=== PATIENT | male | born 1985 | race Caucasian/White ===

== ENCOUNTER 2022-04-13 07:17 | Emergency (ER) | payer OTHER, SELFPAY ==
[2022-04-13 07:19] VITALS: BP 138/81; PULSE 142; RESP 18; TEMP 35.7; O2SAT 97; BMI 33.5
--- NOTE | 2022-04-13 07:19 | NURSING ---
NO OLD EKGS
--- NOTE | 2022-04-13 07:25 | EKG12_ITS ---
Test Reason : cp Blood Pressure : / mmHG Vent. Rate : 140 BPM Atrial Rate : 140 BPM P-R Int : 134 ms QRS Dur : 082 ms QT Int : 266 ms P-R-T Axes : 052 089 000 degrees QTc Int : 406 ms Sinus tachycardia Otherwise normal ECG Confirmed by ALYSSA REYES, ALENA ([id number]), acquisitions editor KHANH BARBOZA ([id number]) on 04/16/2022 7:54:57 AM Referred By: Kelsey Confirmed By:ALENA SHAH MD
[2022-04-13 07:27] VITALS: O2SAT 95
[2022-04-13 07:33] LABS: Absolute Lymphocyte Count 2.62 X10^3/uL (0.83-4.51); Absolute Neutrophil Count 7.2 X10^3/uL (2.0-7.7); Basophil# 0.06 X10^3/uL; Basophil% 0.6 % (0-1); Eosinophil# 0.01 X10^3/uL; Eosinophils% 0.1 % (0-5); Hematocrit 42.5 % (40-54); Hemoglobin 14.5 g/dL (13.0-16.5); Lymphocyte # 2.62 X10^3/ul (0.83-4.51); Lymphocyte % 24.1 % (19-41); Mean Corp Hgb Conc 34.1 g/dL (32-36); Mean Platelet Vol. 9.3 fl (6.2-12.0); Monocyte# 0.93 X10^3/uL; Monocyte% 8.5 % (0-10); NRBC Flagged by Analyzer 0 % (0-5); Neutrophil # 7.22 X10^3/uL (2.7-7.7); Neutrophil % 66.2 % (47-70); Platelet Count 343 K/mm3 (150-450); RBC Distribution Width CV 12.3 % (11.6-14.6); RBC Distribution Width SD 39.8 fl (35.1-43.9); Red Blood Count 4.83 M/mm3 (4.6-6.2); White Blood Count 10.9 K/mm3 (4.4-11.0)
[2022-04-13] MEDS: 0.9% Normal Saline 1,000 ML 1000 ML IV (07:35)
[2022-04-13] MEDS: Aspirin 81 MG TAB.CHEW 324 MG PO (07:35)
[2022-04-13] MEDS: LORazepam 2 MG/ML Syringe 0.5 MG IV (07:35)
--- NOTE | 2022-04-13 07:38 | RAD_ITS ---
EXAM: XR CHEST, 1 VIEW CLINICAL INDICATION: chest pain TECHNIQUE: Frontal view of the chest. This report was created using Open CS report generation technology. COMPARISON: None. FINDINGS: LUNGS AND PLEURAL SPACES: Unremarkable. No consolidation or edema. No pneumothorax. No effusion. HEART: Unremarkable. Normal heart size. MEDIASTINUM: Central airways and mediastinal contour are unremarkable. BONES/JOINTS: Unremarkable. SOFT TISSUES: Unremarkable. RAD/Chest 1 View (Portable) IMPRESSION: No acute cardiopulmonary abnormality. Electronically Signed: Kyaw Thomas MD at 7:53 EDT ,
--- NOTE | 2022-04-13 07:45 | EX.ED.DYSGE1 ---
HPI History of Present Illness Chief Complaint: Palpitations Informant: patient Narrative Narrative: Patient is a 36-year-old male with history of prediabetes (on metformin), hypertension, hyperlipidemia as well as polysubstance abuse presenting with shortness of breath and racing heart. Patient states he did a large amount of crack cocaine as well as heroin last night. He snorted these. He then started having racing heart and feeling short of breath. He states he is had prior incidence with the symptoms when he is abused crack cocaine. He does not know if he is interested in detox at this time. He denies any associated nausea, vomiting, abdominal pain, urinary symptoms or fever. He states he does feel hot and is sweating. No other complaints at this time. [facility] Medical History (Updated 04/13/22 @ 11:[address] Ira Cole, DO) HTN (hypertension) Prediabetes Home Medications aripiprazole 10 mg tablet 10 mg PO DAILY 04/13/22 [History Last Taken Unknown] atorvastatin 40 mg tablet 40 mg PO QHS 04/13/22 [History Last Taken Unknown] fenofibrate nanocrystallized 48 mg tablet 48 mg PO DAILY 04/13/22 [History Last Taken Unknown] lisinopril 10 mg tablet 10 mg PO DAILY 04/13/22 [History Last Taken Unknown] melatonin 10 mg tablet 20 mg PO DAILY 04/13/22 [History Last Taken Unknown] metformin 1,000 mg tablet 1,000 mg PO DAILY 04/13/22 [History Last Taken Unknown] metoprolol succinate 100 mg capsule sprinkle, ext. release 24 hr 100 mg PO DAILY 04/13/22 [History Last Taken Unknown] multivitamin with iron-mineral 1 tab PO DAILY 04/13/22 [History Last Taken Unknown] pantoprazole 40 mg tablet,delayed release 40 mg PO DAILY 04/13/22 [History Last Taken Unknown] trazodone 100 mg tablet 100 mg PO QHS 04/13/22 [History Last Taken Unknown] venlafaxine 75 mg capsule,extended release 24 hr (Effexor XR) 225 mg PO DAILY 04/13/22 [History Last Taken Unknown] vortioxetine 5 mg tablet 5 mg PO DAILY 04/13/22 [History Last Taken Unknown] Allergy/AdvReac Type Severity Reaction Status Date / Time No Known Allergies Allergy Verified 04/13/22 07:18 Social History Smoking Status: Current every day smoker tobacco type: cigarettes ROS ROS ED Constitutional Constitutional ED: Reports sweats; Denies chills or fever(s) Eyes Eyes: Denies blurry vision or change in vision ENT ENT ED: Denies rhinorrhea or sore throat Cardiovascular Cardiovascular: Reports palpitations and racing heartbeat; Denies chest pain Respiratory/Chest Respiratory/Chest: Reports dyspnea; Denies cough Gastrointestinal Gastrointestinal: Denies abdominal pain, constipation, diarrhea, nausea or vomiting Genitourinary Genitourinary ED: Denies dysuria or hematuria Musculoskeletal Musculoskeletal: Denies arthralgias, back pain or myalgias Integumentary Denies rash Neurologic Neurologic: Denies headache(s), paresthesias or weakness Psychiatric Psychiatric: Reports anxiety; Denies suicidal ideation EXAM Physical Exam Const Vital Signs: 04/13/22 07:19 04/13/22 07:21 04/13/22 07:27 Temperature 96.3 F L Temperature Source Temporal Pulse Rate 142 H Respiratory Rate 18 Respiratory Effort Short of Breath Respiratory Pattern Normal Blood Pressure 138/81 H Blood Pressure Mean 100 Pulse Ox 97 95 Oxygen Delivery Method Room Air Room Air 04/13/22 08:25 04/13/22 09:47 04/13/22 10:59 Temperature Temperature Source Pulse Rate 118 H 115 H Respiratory Rate 19 H 18 104 H Respiratory Effort Respiratory Pattern Blood Pressure 136/27 H 153/85 H Blood Pressure Mean 63 107 Pulse Ox 98 100 100 Oxygen Delivery Method Room Air Room Air Room Air Positive well nourished and well developed General Appearance ED: well developed and NAD; Negative for diaphoretic HEENT Reports dry mucous membranes Negative for trauma Mouth ED: Yes dry mucous membranes Mouth: dry mucous membranes Eyes PERRL and EOMs intact bilaterally Neck no lymphadenopathy, supple and no JVD Chest Wall inspection of chest normal and palpation of chest normal Resp normal respiratory effort and clear to auscultation bilaterally Effort and Inspection: Negative for retractions Auscultation: Negative for rhonchi or wheezes Cardio regular rhythm and no murmurs Rate: tachycardic GI normal to inspection, nondistended, normoactive bowel sounds and non-tender Back/Spine no CVA tenderness Extremity normal to inspection General Extremety ED: Negative for edema or tenderness General Extremity: Negative for edema Neuro oriented x3, CN's II-XII intact bilaterally and no sensory deficits noted Motor Exam: strength 5/5 throughout Psych mental status grossly normal Mood & Affect: anxious and tearful Skin no rashes or lesions noted and no wounds MDM MDM MDM Narrative Medical decision making narrative: Patient's evaluated for tachycardia, shortness of breath and palpitations in the setting of crack cocaine abuse. Patient is given IV fluids, aspirin and Ativan. No ST segment changes on EKG. Will obtain cardiac work-up. Patient is given IV fluids, aspirin and Ativan. Heart rate and symptoms improved. He continues to be tachycardic around 115-120 beats per minutes was given a second liter of fluids. D-dimer is negative. CBC is normal. BMP does show a mildly elevated creatinine of 1.34. Patient is unaware of any history of CORDELIA. High sensitivity troponin is 5 and 7. As he does not have ischemic EKG changes I do not think he requires further monitoring for cocaine chest pain. TSH is mildly elevated 3.89 however I do not think this is the cause of his tachycardia, palpitations and shortness of breath. CK is also mildly elevated but not enough to cause rhabdomyolysis. Patient is evaluated by case management. He follows with telepsychiatry and is scheduled to start IOP in [place] for his drug abuse. Patient is now eager to go home. Given that we do not do inpatient detox for crack cocaine we cannot offer admission for detox at this time. Patient verbalizes agreement understand this plan. Discharged home in stable condition. Is given return precautions and counseled to stop using drugs. Lab Data Attestation: I reviewed the patient's lab results. Labs: Laboratory Results - last 24 hr 04/13/22 04/13/22 04/13/22 07:28 07:28 07:28 WBC 10.9 RBC 4.83 Hgb 14.5 Hct 42.5 MCV 88.0 MCH 30.0 MCHC 34.1 RDW Std Deviation 39.8 RDW Coeff of Nelda 12.3 Plt Count 343 MPV 9.3 Immature Gran % (Auto) 0.500 Neut % (Auto) 66.2 Lymph % (Auto) 24.1 [place] % (Auto) 8.5 Eos % (Auto) 0.1 Baso % (Auto) 0.6 Absolute Neuts (auto) 7.2 Absolute Lymphs (auto) 2.62 Nucleated RBC % 0 D-Dimer Quant (PE/DVT) < 0.27 L Sodium 137 Potassium 3.7 Chloride 102 Carbon Dioxide 27.0 Anion Gap 8 BUN 10 Creatinine 1.34 H Estim Creat Clear Calc 74.44 Est GFR (MDRD) Af Amer 78 Est GFR (MDRD) Non-Af 64 BUN/Creatinine Ratio 7.5 L Glucose 137 H Calcium 8.8 Magnesium 1.9 Total Creatine Kinase Troponin I High Sens 5 TSH 3.89 H Urine Opiates Screen Urine Methadone Screen Ur Barbiturates Screen Ur Phencyclidine Scrn Ur Amphetamines Screen MDMA (Ecstasy) Screen U Benzodiazepines Scrn Urine Cocaine Screen U Cannabinoids Screen Ur Drug Screen Comment Ethyl Alcohol 04/13/22 04/13/22 04/13/22 07:28 08:16 08:23 WBC RBC Hgb Hct MCV MCH MCHC RDW Std Deviation RDW Coeff of Nelda Plt Count MPV Immature Gran % (Auto) Neut % (Auto) Lymph % (Auto) [place] % (Auto) Eos % (Auto) Baso % (Auto) Absolute Neuts (auto) Absolute Lymphs (auto) Nucleated RBC % D-Dimer Quant (PE/DVT) Sodium Potassium Chloride Carbon Dioxide Anion Gap BUN Creatinine Estim Creat Clear Calc Est GFR (MDRD) Af Amer Est GFR (MDRD) Non-Af BUN/Creatinine Ratio Glucose Calcium Magnesium Total Creatine Kinase 340 H Troponin I High Sens TSH Urine Opiates Screen NEGATIVE Urine Methadone Screen NEGATIVE Ur Barbiturates Screen NEGATIVE Ur Phencyclidine Scrn NEGATIVE Ur Amphetamines Screen NEGATIVE MDMA (Ecstasy) Screen NEGATIVE U Benzodiazepines Scrn NEGATIVE Urine Cocaine Screen POSITIVE H U Cannabinoids Screen NEGATIVE Ur Drug Screen Comment Ethyl Alcohol < 3.0 04/13/22 09:35 WBC RBC Hgb Hct MCV MCH MCHC RDW Std Deviation RDW Coeff of Nelda Plt Count MPV Immature Gran % (Auto) Neut % (Auto) Lymph % (Auto) [place] % (Auto) Eos % (Auto) Baso % (Auto) Absolute Neuts (auto) Absolute Lymphs (auto) Nucleated RBC % D-Dimer Quant (PE/DVT) Sodium Potassium Chloride Carbon Dioxide Anion Gap BUN Creatinine Estim Creat Clear Calc Est GFR (MDRD) Af Amer Est GFR (MDRD) Non-Af BUN/Creatinine Ratio Glucose Calcium Magnesium Total Creatine Kinase Troponin I High Sens 7 TSH Urine Opiates Screen Urine Methadone Screen Ur Barbiturates Screen Ur Phencyclidine Scrn Ur Amphetamines Screen MDMA (Ecstasy) Screen U Benzodiazepines Scrn Urine Cocaine Screen U Cannabinoids Screen Ur Drug Screen Comment Ethyl Alcohol Radiography Chest X-Ray - ED: 1 View, Read by ED Physician, Read by Radiologist and No Acute Disease Diagnostic Testing: Clinical Impression(s) from Imaging Studies Chest X-Ray 04/13/22 07:38 IMPRESSION: No acute cardiopulmonary abnormality. Electronically Signed: Kyaw Thomas MD at 7:53 EDT , Rhythm Strip Rhythm Strip: Sinus Tach Rate: 140 Ectopy: None EKG Initial EKG: Attestation: I personally reviewed and interpreted this EKG as follows: Interpretation: Sinus Tachycardia Comments: Sinus tachycardia at a rate of 140 Normal axis Normal intervals Normal ST segments Discharge Plan Triage Chief Complaint: Palpitations Other Complaint: Overdose ED Provider: Ira Cole Dx/Rx/DC Orders Clinical Impression: Cocaine abuse, Tachycardia, Acute dyspnea, Elevated serum creatinine Instructions: ED Cocaine And Crack Abuse, ED Palpitations Prescriptions: No Action atorvastatin 40 mg Tablet 40 mg PO QHS venlafaxine [Effexor XR] 75 mg Capsule,Extended Release 24hr 225 mg PO DAILY trazodone 100 mg Tablet 100 mg PO QHS pantoprazole 40 mg Tablet,Delayed Release (Dr/Ec) 40 mg PO DAILY metformin 1,000 mg Tablet 1,000 mg PO DAILY lisinopril 10 mg Tablet 10 mg PO DAILY Multi M Vitamin Tablet 1 tab PO DAILY aripiprazole 10 mg Tablet 10 mg PO DAILY fenofibrate nanocrystallized 48 mg Tablet 48 mg PO DAILY melatonin 10 mg Tablet 20 mg PO DAILY vortioxetine 5 mg Tablet 5 mg PO DAILY metoprolol succinate 100 mg Capsule,Sprinkle,Er 24hr 100 mg PO DAILY Primary Care Provider: Care Physician,No Primary Referrals: Trudy Mason [NON-STAFF] - Care Physician,No Primary [Primary Care Provider] - Activity Restrictions/Additional Instructions: Please follow-up with outpatient detox/rehab as scheduled next week. Disposition Disposition: Home, Self Care
[2022-04-13 07:46] LABS: D-Dimer Quantitative (DVT/PE) < 0.27 FEU/ug/m (0.27-0.49)
[2022-04-13 07:58] LABS: Anion Gap 8 (5-15); BUN 10 mg/dL (7-18); BUN/Creat Ratio 7.5 RATIO (10-20); Calcium,Total 8.8 mg/dL (8.5-10.1); Chloride 102 mmol/L (98-107); Creatinine, Serum 1.34 mg/dL (0.70-1.30); EST Glomerular Filtration Rate 64 mL/min (>60); Est Glom Filt Rate - Afr Amer 78 mL/min (>60); Estimated Creatinine Clearance 74.44 ml/min; Glucose 137 mg/dL (74-106); Magnesium 1.9 mg/dL (1.6-2.6); Potassium 3.7 mmol/L (3.5-5.1); Sodium Level 137 mmol/L (136-145); Thyroid Stim Hormone (TSH) 3.89 uIU/mL (0.358-3.74); Troponin-I HS (w/2H Reflex) 5 pg/mL (3.0-78.0)
[2022-04-13 08:07] LABS: CPK Total, Creatine Kinase 340 U/L (39-308)
[2022-04-13 08:25] VITALS: BP 136/27; PULSE 118; RESP 19; O2SAT 98
[2022-04-13 08:55] LABS: Alcohol, Blood (Medical)-Serum < 3.0 mg/dL
[2022-04-13 09:00] LABS: Amphetamine Urine VISTA NEGATIVE (<1000 ng/mL); Barbiturate Urine VISTA NEGATIVE (< 200 ng/mL); Benzodiazepine Urine VISTA NEGATIVE (< 200 ng/mL); Cocaine Urine VISTA POSITIVE (< 300 ng/mL); Ecstacy Urine VISTA NEGATIVE (< 500 ng/mL); Methadone Urine VISTA NEGATIVE (< 300 ng/mL); PCP Urine VISTA NEGATIVE (< 25 ng/mL); THC Urine VISTA NEGATIVE (< 50 ng/mL); Vista UDS pH Range 7
[2022-04-13 09:30] LABS: Reflex Troponin-HS? (from REC) Y
[2022-04-13] MEDS: 0.9% Normal Saline 1,000 ML 999 ML IV (09:42)
[2022-04-13] MEDS: LORazepam 1 MG Tablet PO (09:46)
[2022-04-13 09:47] VITALS: BP 153/85; PULSE 115; RESP 18; O2SAT 100
[2022-04-13 10:03] LABS: Troponin-I HS 7 pg/mL (3.0-78.0)
--- NOTE | 2022-04-13 10:38 | CM.ED ---
Addendum entered by Shelby Del Rio 04/13/22 10:56: Pt also stated history of Depression and states that he currently takes medications prescribed through Psychiatrist Julisa Gallo. Pt states that his Psychiatrist is online. Original Note: Social Work Note Reason for Referral: Substance Abuse SW spoke with MD Cole, request pt get resources for substance abuse. SW in to speak with pt. Pt states that he is scheduled to begin IOP at [facility] in [place] next week. Pt states that he has transportation to get to his appointments. Pt states that he cannot go to [facility] as his brother works there. SW asked pt if he wanted additional resources for [facility] for substance use and pt agreeable to taking resources. SW provided pt with resources for [facility]. Pt denied any current suicidal/homicidal thoughts. Shelby Del Rio RN PALLIATIVE, PROGRAM REP
[2022-04-13 10:59] VITALS: RESP 104; O2SAT 100
== END 2022-04-13 11:13 | disposition home or self-care (01) ==
PROVIDERS: Emergency Provider Emergency Medicine; Visit Provider Emergency Medicine
DX: R00.2 Palpitations (principal); F14.10 Cocaine abuse, uncomplicated; R79.89 Other specified abnormal findings of blood chemistry; F17.210 Nicotine dependence, cigarettes, uncomplicated; I10 Essential (primary) hypertension; R06.00 Dyspnea, unspecified; R73.03 Prediabetes; E78.5 Hyperlipidemia, unspecified; Z79.899 Other long term (current) drug therapy
CPT/HCPCS: 36415; 71045; 80048; 80307; 82077; 82550; 83735; 84443; 84484; 85025; 85379; 93005; 96361; 96374; 99285; J7030; A4216

== ENCOUNTER → 2022-07-23 | Outpatient (CLI) | payer MEDICAID, SELFPAY ==
[2022-07-23 09:51] LABS: Absolute Lymphocyte Count 2.34 X10^3/uL (0.83-4.51); Basophil# 0.02 X10^3/uL; Basophil% 0.3 % (0-1); Eosinophils% 1.7 % (0-5); Hematocrit 38.5 % (40-54); Hemoglobin 13.7 g/dL (13.0-16.5); Lymphocyte # 2.34 X10^3/ul (0.83-4.51); Lymphocyte % 38.9 % (19-41); Mean Corp Hgb Conc 35.6 g/dL (32-36); Mean Corpuscular Hgb 31.6 pg (27.0-32.0); Mean Corpuscular Volume 88.9 fL (80-94); Mean Platelet Vol. 9.8 fl (6.2-12.0); Monocyte# 0.54 X10^3/uL; NRBC Flagged by Analyzer 0 % (0-5); Neutrophil # 2.99 X10^3/uL (2.7-7.7); Neutrophil % 49.6 % (47-70); Platelet Count 278 K/mm3 (150-450); RBC Distribution Width SD 42.2 fl (35.1-43.9); Red Blood Count 4.33 M/mm3 (4.6-6.2)
[2022-07-23 10:24] LABS: ALB/GLOB Ratio 1.1 RATIO (0.9-2.4); AST(SGOT) 23 U/L (15-37); Alanine Aminotransfer ALT/SGPT 26 U/L (16-61); Albumin, Serum 3.4 g/dL (3.2-5.0); Alkaline Phosphatase 44 U/L (45-117); Anion Gap 5 (5-15); BUN 11 mg/dL (7-18); BUN/Creat Ratio 9.2 RATIO (10-20); Calcium,Total 8.5 mg/dL (8.5-10.1); Chloride 108 mmol/L (98-107); EST Glomerular Filtration Rate 73 mL/min (>60); Est Glom Filt Rate - Afr Amer 88 mL/min (>60); Globulin 3.1 g/dL (2.2-4.2); Glucose 160 mg/dL (74-106); Potassium 3.9 mmol/L (3.5-5.1); Protein, Total 6.5 g/dL (6.4-8.2); Sodium Level 139 mmol/L (136-145); T4 Free Direct 0.87 ng/dL (0.76-1.46); Thyroid Stim Hormone (TSH) 2.48 uIU/mL (0.358-3.74)
[2022-07-23 10:45] LABS: HIV - WCH Non-Reactive (Nonreactive); Hepatitis B Surface Antibody Reactive; Hepatitis B Surface Antigen Non-Reactive (Nonreactive); Hepatitis C Antibody Non-Reactive (Nonreactive)
[2022-07-24 09:44] LABS: Hepatitis A AB, Total Positive (Negative)
== END | disposition home or self-care (01) ==
LOC: MTLAB 08:48
PROVIDERS: PCP Family Medicine; Referring Provider Registered Nurse; Visit Provider Registered Nurse
DX: F11.20 Opioid dependence, uncomplicated (principal); F10.20 Alcohol dependence, uncomplicated
CPT/HCPCS: 36415; 80053; 84439; 84443; 85025; 86703; 86706; 86708; 86803; 87340

== ENCOUNTER 2022-09-16 10:43 | Outpatient (CLI) | payer MEDICAID, SELFPAY ==
[2022-09-16 12:39] LABS: Cholesterol 148 mg/dL (200)
[2022-09-16 12:51] LABS: Hemoglobin A1c 6.4 % (3.8-5.6)
== END 2022-09-16 23:59 | disposition home or self-care (01) ==
PROVIDERS: PCP Family Medicine; Referring Provider Student in an Organized Health Care Education/Training Program; Visit Provider Student in an Organized Health Care Education/Training Program
DX: F19.94 Other psychoactive substance use, unspecified with psychoactive substance-induced mood disorder (principal); Z79.899 Other long term (current) drug therapy
CPT/HCPCS: 36415; 82465; 83036

== ENCOUNTER → 2023-10-26 | Outpatient (CLI) | payer MEDICAID, SELFPAY ==
--- OUTSIDE RECORDS SUMMARY | 2023-10-26 11:15 | XMS RPT_ITS | CCD ---
Author Name Unknown Address [address] [place] [address] Organization [facility] Care Team Providers Care Dobie Man Name Role Phone RUBEN VEGA Primary Care Unavailabl e Problems Problem Classification Problem Date Documented Da te Episodic/Chronic Substance-related disorders (2 sources) Cocaine dependence with withdrawal; Translations: [Cocaine dependence with withdrawal] Onset: 09-14-2023 Chronic Encounters Encounter Date Encounter Type Care Provider Facility Start: 09-14-2023 End: 09-18-2023 ambulatory RUBEN LEENGER [facility] Payers Date Payer Category Payer Medicaid [id number] 1985 Unknown [id number] Summary Purpose Family History No Family History Records Found Advance Directives No Advanced Directives Records Found Additional Source Comments (unrecognized sect ion and content) No Status Records Found INFORMATION SOURCE (unrecogn ized section and content) FOR RECORDS PERTAINING TO PATIENTS WHO ARE OR HAVE BEEN ENROLLED IN A CHEMICAL DEPENDENCY/SUBSTANCEABUSE PROGRAM, SOME INFORMATION MAY BE OMITTED. This clinical summary was aggregated from multiple sources. Caution should be exercised in using it in the provision of clinical care. This summary normalizes information from multiple sources, and as a consequence, information in this document may materially change the coding, format and clinical context of patient data. In addition, data may be omitted in some cases. CLINICAL DECISIONS SHOULD BE BASED ON THE PRIMARY CLINICAL RECORDS. [employer] provides no warranty or guarantee of the accuracy or completeness of information in this document.
[2023-10-26 12:54] LABS: ALB/GLOB Ratio 1.2 RATIO (0.9-2.4); AST(SGOT) 22 U/L (15-37); Alanine Aminotransfer ALT/SGPT 27 U/L (16-61); Alkaline Phosphatase 44 U/L (45-117); Anion Gap 3 (5-15); BUN 9 mg/dL (7-18); BUN/Creat Ratio 8.8 RATIO (10-20); Calcium,Total 9.2 mg/dL (8.5-10.1); Chloride 111 mmol/L (98-107); Cholesterol 135 mg/dL (200); Creatinine, Serum 1.02 mg/dL (0.70-1.30); EST Glomerular Filtration Rate 87 mL/min (>60); Est Glom Filt Rate - Afr Amer 106 mL/min (>60); Globulin 3.4 g/dL (2.2-4.2); Glucose 96 mg/dL (74-106); High Density Lipoprotein 42 mg/dL; Potassium 4.1 mmol/L (3.5-5.1); Protein, Total 7.4 g/dL (6.4-8.2); Sodium Level 140 mmol/L (136-145); Triglycerides 131 mg/dL; Very Low Density Lipoprotein 26 mg/dL (5-40)
[2023-10-26 13:08] LABS: Microalbumin,Random Urine < 5.0 mg/L (NO RANGE EST.)
== END | disposition home or self-care (01) ==
LOC: MFPLAB 10:08
PROVIDERS: PCP Family Medicine; Visit Provider Family Medicine
DX: E78.5 Hyperlipidemia, unspecified (principal); E11.9 Type 2 diabetes mellitus without complications
CPT/HCPCS: 36415; 80053; 80061; 82043; 82570

== ENCOUNTER → 2024-05-08 | Outpatient (CLI) | payer MEDICAID, SELFPAY ==
[2024-05-08 17:52] LABS: Hemoglobin A1c 7.1 % (3.8-5.6)
== END | disposition home or self-care (01) ==
LOC: MFPLAB 16:02
PROVIDERS: PCP Family Medicine; Visit Provider Family Medicine
DX: E11.9 Type 2 diabetes mellitus without complications (principal); F32.A Depression, unspecified
CPT/HCPCS: 36415; 83036; 84443

== ENCOUNTER 2024-11-20 08:43 | Emergency (ER) | payer MEDICAID, SELFPAY ==
[2024-11-20 08:44] VITALS: BP 117/74; PULSE 92; RESP 14; TEMP 36.4; O2SAT 96; BMI 28.5
--- NOTE | 2024-11-20 09:09 | EDS_ITS ---
HPI History of Present Illness Chief Complaint: Wound Detail of Chief Complaint: Wound to right forearm and right foot Informant: patient Narrative Narrative: Patient presents to the emergency department concerned about infection due to wound on his right forearm and right foot. Patient states that he injected into his right foot IV meth 2 weeks ago. Started having some discomfort 2 weeks ago but more so over the last week. He has noticed some swelling and some faint erythema to the foot. He denies fever although at times he is felt hot. Patient also has a wound on the distal right forearm that he thinks might be infected as well. Patient also does use crack. He occasionally uses heroin. Patient is prediabetic and has history of hypertension and high cholesterol. [facility] Medical History Skin abnormality Trauma and stressor-related disorder Cellulitis of right middle finger Cellulitis of left index finger Long-term use of high-risk medication GERD (gastroesophageal reflux disease) IBS (irritable bowel syndrome) High triglycerides High cholesterol Gastrointestinal problem Alcohol use disorder Substance induced mood disorder Stimulant use disorder Prediabetes HTN (hypertension) Home Medications ?Medication ?Instructions ?Recorded ?Last Taken ?Type atorvastatin 40 mg tablet 40 mg PO QHS 04/13/22 Unknow n History fenofibrate nanocrystallized 48 mg 48 mg PO DAILY 03/26 06/17 Unknown History tablet lisinopril 10 mg tablet 10 mg PO DAILY 04/13/22 Unkn own History melatonin 10 mg tablet 20 mg PO DAILY 04/13/22 Unkn own History metformin 1,000 mg tablet 1,000 mg PO DAILY 04/13/22 U nknown History famotidine 20 mg tablet 20 mg PO BID 08/17/22 Unknow n History metoprolol succinate 50 mg 50 mg PO QDAY 06/26/24 Unkn own History tablet,extended release 24 hr venlafaxine 75 mg capsule,extended 225 mg (3 x 75 mg) PO DAILY #90 09/04/24 Unknown Rx release 24 hr caps aripiprazole 10 mg tablet 10 mg PO DAILY #90 tabs 11/20 Unknown Rx clonidine HCl 0.1 mg tablet 0.1 mg PO QHS #90 tabs 11/20 Unknown Rx clindamycin HCl 300 mg capsule 300 mg PO Q6H #40 CAPSU LES 11/20/24 Unknown Rx (Cleocin HCl) Allergy/AdvReac Type Severity Reaction Status Date / Time No Known Allergies Allergy Verified 11/20/24 08:44 Family History Other Alcoholism Anxiety Arthritis Breast cancer Cancer Diabetes Heart disease High cholesterol Hypertension Kidney disease Myocardial infarction Osteoporosis Respiratory disease Surgical History No history of previous surgery Social History (Updated 06/26/24 @ 08:30 by Dana Molina) Smoking Status: Current every day smoker tobacco type: cigarettes Smokeless tobacco user: snus alcohol intake: never details: Unknown substance use type: does not use ROS ROS ED Review of Systems ROS Unobtainable: other Constitutional Constitutional ED: Reports lethargy; Denies chills, fever(s), sweats or weight loss Eyes Eyes: Denies blurry vision, change in vision or diplopia ENT ENT ED: Denies rhinorrhea or sore throat Cardiovascular Cardiovascular: Denies chest pain, orthopnea or racing heartbeat Respiratory/Chest Respiratory/Chest: Denies cough, dyspnea, dyspnea on exertion, orthopnea or sputum Gastrointestinal Gastrointestinal: Denies abdominal pain, diarrhea, nausea or vomiting Genitourinary Genitourinary ED: Denies dysuria, hematuria or urinary frequency Musculoskeletal Musculoskeletal: Reports other Details: Right forearm wound, right foot swelling and erythema ; Denies arthralgias, back pain, myalgias or neck pain Integumentary Denies abscess, Abrasions or rash Neurologic Neurologic: Denies headache(s) or weakness Psychiatric Psychiatric: Denies anxiety, depression or suicidal thoughts Endocrine Endocrinology: Denies polydipsia, polyphagia or polyuria Hematologic/Lymphatic Hematologic/Lymphatic: Denies easy bleeding, easy bruising or lymphadenopathy Allergic/Immunologic Allergic/Immunologic ED: Denies mouth swelling, tongue swelling or urticaria EXAM Physical Exam Const Vital Signs: 11/20/24 08:44 11/20/24 10:44 Temperature 97.6 F L Temperature Source Oral Pulse Rate 92 92 Respiratory Rate 14 14 Blood Pressure 117/74 Blood Pressure Mean 88 Pulse Ox 96 99 Oxygen Delivery Method Room Air Positive well nourished and well developed General Appearance ED: well developed and NAD HEENT Reports TM's clear and moist mucous membranes normocephalic and atraumatic; Negative for trauma or tenderness Tympanic Membrane ED: Yes TM's clear Eyes PERRL and EOMs intact bilaterally General Eye ED: Negative for pale conjunctiva or scleral icterus Neck no lymphadenopathy, supple and no JVD General: Negative for tenderness Chest Wall inspection of chest normal and palpation of chest normal Chest: Negative for tenderness Resp normal respiratory effort and clear to auscultation bilaterally Effort and Inspection: Negative for respiratory distress or pain with movement Auscultation: Negative for rhonchi, wheezes or diminished lung sounds Cardio regular rate, regular rhythm, S1 normal heart sound, S2 normal heart sound and no murmurs Peripheral Pulses: pulses 2+ throughout GI normal to inspection, nondistended, normoactive bowel sounds, soft to palpation, non-tender, non-distended and no masses Back/Spine no CVA tenderness and no thoracic nor lumbar tenderness Extremity normal to inspection Extremity Narrative: Right forearm-over the distal radial aspect of the forearm there is a small excoriated lesion measuring approximately 1.5 cm in diameter. There is no fluctuance. No significant cellulitic changes. Central portion slightly excoriated. There is no lymphangitic streaking. Neurovascular intact distally. Right foot-there are some mild diffuse soft tissue swelling over the dorsum of the foot especially over the lateral aspect. Just some faint erythema to the dorsum of the foot. No discrete soft tissue swellings or fluctuance noted. No obvious breaks in the skin noted on exam. No gas palpated within the tissues. Neurovascular intact General Extremety ED: Negative for edema General Extremity: Negative for edema Neuro oriented x3, CN's II-XII intact bilaterally, no sensory deficits noted and gait normal Sensorium / Orientation: awake, alert, oriented to person, oriented to place and oriented to time Motor Exam: strength 5/5 throughout and strength abnormal Psych mental status grossly normal Skin no rashes or lesions noted and no wounds MDM MDM MDM Narrative Medical decision making narrative: Patient with an old excoriated wound to the right forearm without evidence of abscess or cellulitic changes. Patient also has some erythema and some mild soft tissue swelling of the dorsum of the right foot without trauma. Suspect early cellulitis. I did obtain an x-ray of the foot and the forearm and there was no foreign bodies noted and no gas within the tissues. I did start patient on clindamycin p.o. Clinically he looks well. Advised that he follow-up with his primary care physician for wound check within next 3 days. Advised to return if fever, chills, increased pain or redness, or condition should worsen anyway Radiography Diagnostic Testing: Clinical Impression(s) from Imaging Studies Foot X-Ray 11/20/24 09:30 IMPRESSION: NEGATIVE exam of the right foot. Reading Location: [facility] Forearm X-Ray 11/20/24 09:30 IMPRESSION: Unremarkable examination of the right forearm. Reading Location: [facility] 2 view x-rays of the right forearm obtained interpreted by myself as no evidence of gas within the tissues or foreign bodies within the tissues and no abnormality noted. Radiology in agreement. Three-view x-rays of the right foot obtained interpreted by myself as questionable abnormality in the cortex of the base of the middle phalanx and was unclear if this was a nutrient channel versus nondisplaced fracture. Radiology felt the x-ray was normal. I did discuss case with the radiologist Dr. Rosen who felt this was a nutrient channel and not a fracture. Discharge Plan Triage Chief Complaint: Wound ED Provider: Bj Nunes Dx/Rx/DC Orders Clinical Impression: Cellulitis of foot, right Instructions: Cellulitis Dc Prescriptions: New clindamycin HCl [Cleocin HCl] 300 mg capsule 300 mg PO Q6H Qty: 40 0RF No Action famotidine 20 mg tablet 20 mg PO BID metoprolol succinate 50 mg tablet extended release 24 hr 50 mg PO QDAY aripiprazole 10 mg tablet 10 mg PO DAILY Qty: 90 1RF clonidine HCl 0.1 mg tablet 0.1 mg PO QHS Qty: 90 1RF atorvastatin 40 mg Tablet 40 mg PO QHS metformin 1,000 mg Tablet 1,000 mg PO DAILY lisinopril 10 mg Tablet 10 mg PO DAILY fenofibrate nanocrystallized 48 mg Tablet 48 mg PO DAILY melatonin 10 mg Tablet 20 mg PO DAILY venlafaxine 75 mg capsule,extended release 24hr 225 mg PO DAILY Qty: 90 2RF Primary Care Provider: Toñito Leon Referrals: Toñito Leon MD [Primary Care Provider] - 2 Days for wound check Print Language: Cambodian Disposition Disposition: Home, Self Care
[2024-11-20] MEDS: Clindamycin HCl 150 MG Capsule 300 MG PO (09:20)
--- NOTE | 2024-11-20 09:30 | RAD_ITS ---
PROCEDURE: FOREARM 2 VIEWS REASON FOR EXAM: Soft tissue wound. History of IV drug abuse. TECHNIQUE: 2 view(s) of right forearm were obtained. COMPARISON: None. FINDINGS: RIGHT FOREARM: No fracture. No suspicious bone lesion. Normal alignment at the wrist and elbow. Soft tissues are unremarkable. RAD/Forearm 2 Views IMPRESSION: Unremarkable examination of the right forearm. Reading Location: [facility]
--- NOTE | 2024-11-20 09:30 | RAD_ITS ---
PROCEDURE: FOOT MIN 3 VIEWS REASON FOR EXAM: Soft tissue swelling. Drug use. TECHNIQUE: Three views of the right foot were obtained. COMPARISON: None. FINDINGS: RIGHT FOOT: No visible fracture. No suspicious bone lesion. Normal alignment. Soft tissues are unremarkable. RAD/Foot min 3 Views IMPRESSION: NEGATIVE exam of the right foot. Reading Location: [id number]
[2024-11-20 10:44] VITALS: PULSE 92; RESP 14; O2SAT 99
== END 2024-11-20 12:11 | disposition home or self-care (01) ==
PROVIDERS: Emergency Provider Emergency Medicine; PCP Family Medicine; Visit Provider Emergency Medicine
DX: L03.115 Cellulitis of right lower limb (principal); I10 Essential (primary) hypertension; R73.03 Prediabetes; E78.00 Pure hypercholesterolemia, unspecified; F14.90 Cocaine use, unspecified, uncomplicated; K21.9 Gastro-esophageal reflux disease without esophagitis; F17.210 Nicotine dependence, cigarettes, uncomplicated; F11.90 Opioid use, unspecified, uncomplicated
CPT/HCPCS: 73090; 73630; 99282